=== PATIENT | female | born 1990 | race Caucasian/White ===

== ENCOUNTER 2016-09-19 22:56 | Emergency (ER) | payer OTHER ==
[~2016-09-19] VITALS: Ht 160 cm; Wt 63.1 kg
[~2016-09-19 22:56] MED LIST: ETONMIS VAGRING
[2016-09-19 23:00] VITALS: TEMP 37.2; Ht 160 cm; Wt 63.1 kg
[2016-09-19] MEDS ORDERED: BUSP-8 PO (23:15)
[2016-09-19] MEDS ORDERED: BUPR-79 PO (23:15)
[2016-09-20 01:20] VITALS: BP 126/76; PULSE 94; O2SAT 98
--- NOTE | 2016-09-20 04:25 | EMERGENCY ROOM VISIT NOTE ---
History First contact with patient: 23:12 Chief Complaint: LEG PAIN,LEG INJURY Stated Complaint: PAIN IN RIGHT LEG History of Present Illness The patient is a 25 year old female who presents to the Emergency Room with complaints of a dull aching pain in her right lower leg that has been ongoing for the past 9 or 10 days. The patient is on control and states that she was traveling by car 5 [place] to [place]. She does not have a history of DVT or PE, however she is concerned about this. The patient has not had fever or chills. No chest pain, chest tightness, or shortness of breath. She is without abdominal pain. She states that she was walking several miles per day while on vacation, but does not recall other increased activity, injury, or trauma. She has not taken anything [id number] for her symptoms. She rates her discomfort a 4/10. She does not identify aggravating or alleviating factors. Review of Systems More than 10 systems were reviewed and otherwise negative with the exception of history of present illness. Past Medical/Surgical History Medical Problems: (1) Anxiety Family History Hypertension Social History Smoking Status: Never Smoker Marital Status: single Housing Status: lives with family Occupation Status: employed Current/Historical Medications Scheduled Bupropion (Wellbutrin Sr), 150 MG PO DAILY Buspirone Hcl (Buspirone Hcl), 10 MG PO BID Etonogestrel/Ethinyl Estradiol (Nuvaring), 1 EA VAGRING MONTHLY Physical Exam Vital Signs Date Time Temp Pulse Resp B/P (MAP) Pulse Ox O2 Delivery O2 Flow Rate FiO2 09/20/16 01:20 94 18 126/76 98 09/20/16 00:29 84 18 131/73 97 Room Air 09/19/16 23:00 37.2 90 18 141/93 96 Room Air Pain Rating (0-10): 1.0 Physical Exam VITALS: Vitals are noted on the nurse's note and reviewed by myself. Vital signs stable. GENERAL: Well-developed, well-nourished, white female, who is in no acute distress and resting comfortably. Patient is cooperative with the examination. HEART: Regular rate and rhythm without murmurs gallops or rubs. LUNGS: Clear to auscultation bilaterally without wheezes, rales or rhonchi. No retractions or accessory muscle use. MUSCULOSKELETAL: No muscle atrophy, erythema, or edema noted. No obvious tenderness throughout the right lower extremity. No mass or palpable cord. No tenderness of the posterior calf. Pulses intact distally. NEURO: Patient was alert and oriented to person place and time. CN II through XII grossly intact. Medical Decision & Procedures ER Provider Diagnostic Interpretation: Preliminary Findings Only See Final Report For Complete Findings US VENOUS RIGHT LOWER EXTREMITY: No evidence of deep vein thrombosis. ED Course Physical exam and history were performed. Nursing notes, EMR, and Medication List were personally reviewed. Patient appears to have reports of vague right lower leg pain for the past 9 or 10 days. She has been ambulating and does not have bony tenderness. Ultrasound was performed and does not show evidence of acute DVT or other significant findings. I discussed the results with the patient, who was pleased with the results. She appears stable for discharge home and was asked to follow with her PCP with any ongoing or persistent symptoms. She was otherwise given discharge instructions as below was discharged home under the care of her mother. The chart was completed utilizing [employer] Speech Voice Recognition Software. Grammatical errors, random word insertions, pronoun errors, and incomplete sentences are an occasional consequence of this system due to software limitations, ambient noise, and hardware issues. Any formal questions or concerns about the content, text, or information contained within the body of this dictation should be directly addressed to the provider for clarification. . Medical Decision Differential diagnosis: Etiologies such as DVT, musculoskeletal, infection, joint effusion, trauma, lymphedema, idiopathic, CHF, as well as others were entertained.. Impression Primary Impression: Pain in right leg Departure Information Dispostion Home / Self-Care Condition GOOD Forms HOME CARE DOCUMENTATION FORM, IMPORTANT VISIT INFORMATION Patient Instructions My [facility] Additional Instructions You were seen and evaluated today on an emergency basis only. This is not a substitute for, or an effort to provide, complete comprehensive medical care. It is not possible to recognize and treat all injuries or illnesses in a single emergency department visit. For this reason it is recommended that you followup with your primary care physician in the next week for recheck of your condition. For baseline pain relief you may alternate ibuprofen and acetaminophen every 4 hours for pain control. Take 600 mg ibuprofen (Advil) and then 4 hours later take 1000 mg acetaminophen (Tylenol). Do not take more than 3000 mg acetaminophen in a single day. You are welcome to return to the emergency department anytime with new, worsening, or concerning symptoms.
--- NOTE | 2016-09-20 07:01 | DIAGNOSTIC IMAGING REPORT ---
RIGHT LOWER EXTREMITY VENOUS DOPPLER CLINICAL HISTORY: RLE pain/swelling. On control. Recent travel. COMPARISON STUDY: No previous studies for comparison. TECHNIQUE: Sonography of the deep venous system of the right lower extremity was performed. Compression and augmentation were evaluated. FINDINGS: The common femoral, superficial femoral and popliteal veins were compressible. Augmentation was normal. Flow was shown within the deep calf vessels. IMPRESSION: No evidence of deep venous thrombus within the right lower extremity. Electronically signed by: Hussain Maria M.D. 09/20/2016 7:00 AM Dictated Date/Time: 09/20/2016 6:59 AM
== END 2016-09-20 01:20 | disposition home or self-care (01) ==
LOC: C.EDB 22:57
DX: M79.604 Pain in right leg (principal); F41.9 Anxiety disorder, unspecified; Z82.49 Family history of ischemic heart disease and other diseases of the circulatory system